=== PATIENT | male | born 1930 | race Caucasian/White ===

== ENCOUNTER → 2017-06-02 | Outpatient (CLI) | payer OTHER ==
[~2017-06-02] MED LIST: LEXISCAN IV ONE
== END ==
LOC: RAD 08:16
PROVIDERS: ATTEND Internal Medicine Cardiovascular Disease
DX: R01.1 Cardiac murmur, unspecified (principal)
CPT/HCPCS: 78452; 93017; A4222; A9502; J2785

== ENCOUNTER → 2017-06-23 | Outpatient (CLI) | payer OTHER | END | disposition home or self-care (01) | DRG 307 | LOC: RAD 15:58 | PROVIDERS: ATTEND Internal Medicine Cardiovascular Disease | DX: R01.1 Cardiac murmur, unspecified (principal); Z95.0 Presence of cardiac pacemaker | CPT/HCPCS: 93306 ==